=== PATIENT | male | born 1960 | race Caucasian/White ===

== ENCOUNTER 2017-04-12 13:19 | Observation (INO) | payer BC ==
[~2017-04-12] VITALS: Ht 190.5 cm; Wt 164.5 kg
[~2017-04-12 13:19] MED LIST: GLYBURIDE-METF1 EAC1 PO; LEVEMIR FL100 UNITS/ SC; LEVOCETIRIZINE D5 MG PO; LIPITOR40 MG PO; LISINOPRIL20 MG PO; NEXIUM40 MG PO; NOVOLOG PE100 UNITS/ SC; OXYCODONE HCL10 MG PO; SERTRALINE HCL50 MG PO
[2017-04-12 15:10] LABS: HEMATOCRIT 42.9 % (38.0-50.0); MCH 26.1 PG (29.0-34.0); MCHC 32.4 G/DL (30.0-36.0); MCV 80.6 FL (86-99); RBC DIS.WIDTH-SD 37.4 % (39-53); RED BLOOD COUNT 5.32 M/uL (4.00-5.50); WHITE BLOOD COUNT 8.6 K/uL (4.1-10.2)
[2017-04-12 15:31] LABS: CHLORIDE 100 mEq/L (99-109); POTASSIUM 4.8 mEq/L (3.7-5.4); SODIUM 136 mEq/L (136-147)
[2017-04-12 15:33] LABS: GLUCOSE 253 mg/dL (70-99)
[2017-04-12 15:34] LABS: ANION GAP 11 MEQ/L (2-14)
[2017-04-12 15:35] LABS: TOTAL BILIRUBIN 0.4 mg/dL (0.0-1.0)
[2017-04-12 15:36] LABS: ALKALINE PHOSPHATASE 72 IU/L (3-129)
[2017-04-12 15:37] LABS: GFR ESTIMATE (CALCULATED) > 59 mL/min/
[2017-04-12 15:38] LABS: UREA NITROGEN (BUN) 13 mg/dL (9-23)
[2017-04-12 15:42] LABS: TROP-I INTERPRETATION NEGATIVE; TROPONIN-I < 0.01 ng/mL (0.0-0.30)
[2017-04-12] MEDS ORDERED: HUMALOG100 UNIT/2 SC (15:58)
[2017-04-12] MEDS ORDERED: LEVEMIR FL100 UNIT/1 SC (15:58)
[2017-04-12] MEDS ORDERED: IBUPROFEN800 MG PO (16:00)
[2017-04-12] MEDS ORDERED: JANUVIA100 MG PO (16:00)
[2017-04-12] MEDS ORDERED: PROBIOTIC1 EAC1 PO (16:01)
[2017-04-12 16:07] LABS: MEAN PLAT.VOLUME 13.1 uM^3 (9.0-12.4); PLAT.SUFFICIENCY ADEQUATE; PLATELET COUNT 198 K/uL (156-360)
[2017-04-12 21:02] VITALS: BP 118/55
[2017-04-12 21:18] LABS: HDL CHOLESTEROL 38 MG/DL (Desirable>=40); LDL CHOLESTEROL 86 mg/dL (Desirable<100); NON-HDL CHOLESTEROL 119 mg/dL (Desirable<160); TOTAL CHOLESTEROL 157 mg/dL (Desirable<200); TRIGLYCERIDES 167 MG/DL (Normal: <150)
[2017-04-12 21:21] LABS: D-DIMER ELISA 0.35 mg/L FEU (< 0.57)
[2017-04-12] MEDS ORDERED: TRIAMCINOLONE A15 GM TP (22:29)
[2017-04-12 22:36] LABS: TROP-I INTERPRETATION NEGATIVE; TROPONIN-I < 0.01 ng/mL (0.0-0.30)
[2017-04-12 23:46] VITALS: BP 132/63
[2017-04-13 04:06] VITALS: BP 131/68
[2017-04-13 04:53] LABS: TROP-I INTERPRETATION NEGATIVE; TROPONIN-I < 0.01 ng/mL (0.0-0.30)
[2017-04-13 09:12] LABS: POINT-OF-CARE METER ID UU13113831
[2017-04-13 09:20] VITALS: BP 133/76
[2017-04-13] MEDS ORDERED: ASPIR-LOW81 MG PO (12:20)
[2017-04-13 12:41] VITALS: BP 141/70
== END 2017-04-13 13:15 | disposition home or self-care (01) ==
LOC: EME 13:19 → EDOF 19:15 → 5WEST 19:15 → EDOF 19:15 → 5WEST 20:54
PROVIDERS: Hospitalist; Internal Medicine
DX: R07.9 Chest pain, unspecified (principal); R55 Syncope and collapse; R53.1 Weakness; I10 Essential (primary) hypertension; E78.5 Hyperlipidemia, unspecified; G47.33 Obstructive sleep apnea (adult) (pediatric); E66.01 Morbid (severe) obesity due to excess calories; R25.2 Cramp and spasm; Z96.641 Presence of right artificial hip joint; E11.9 Type 2 diabetes mellitus without complications
CPT/HCPCS: 71020; 80053; 80061; 82948; 84484; 85027; 85379; 93005; 93971; 94660; 99281; 99285; G0378; J1815; J7030

== ENCOUNTER 2017-12-20 19:32 | Observation (INO) | payer BC ==
[~2017-12-20] VITALS: Ht 190.5 cm; Wt 155.1 kg
[~2017-12-20 19:32] MED LIST changes: +ASPIR-LOW81 MG PO; +HUMALOG100 UNIT/2 SC; +IBUPROFEN800 MG PO; +JANUVIA100 MG PO; +LEVEMIR FL100 UNIT/1 SC; +PROBIOTIC1 EAC1 PO; +TRIAMCINOLONE A15 GM TP
[2017-12-20 20:36] LABS: HEMATOCRIT 43.3 % (38.0-50.0); HEMOGLOBIN 14.3 G/DL (12.5-16.6); MCH 26.3 PG (29.0-34.0); MCV 79.7 FL (86-99); PLATELET COUNT 245 K/uL (156-360); RBC DIS.WIDTH-CV 13.2 % (11.8-14.6); RBC DIS.WIDTH-SD 37.2 % (39-53); RED BLOOD COUNT 5.43 M/uL (4.00-5.50); WHITE BLOOD COUNT 14.6 K/uL (4.1-10.2)
[2017-12-20 21:02] LABS: ALBUMIN 4.3 G/DL (3.2-4.8); CHLORIDE 95 MEQ/L (99-109); POTASSIUM 4.1 MEQ/L (3.7-5.4); SODIUM 132 MEQ/L (136-147); TOTAL BILIRUBIN 0.4 MG/DL (0.0-1.0)
[2017-12-20 21:08] LABS: ALKALINE PHOSPHATASE 103 IU/L (3-129); ALT (GPT) 29 IU/L (3-49); AST (GOT) 26 IU/L (2-34); CREATININE 0.9 MG/DL (0.6-1.3); GFR ESTIMATE (CALCULATED) > 59 mL/min/ (58.99-99999); GLUCOSE 371 mg/dL (70-99); LIPASE 30 U/L (1.0-51.0); TOTAL PROTEIN 7.8 G/DL (6.4-8.3); UREA NITROGEN (BUN) 13 mg/dL (9-23)
[2017-12-20 21:19] LABS: APPEARANCE CLEAR ((CLEAR)); BILIRUBIN NEGATIVE; BLOOD NEGATIVE; COLOR STRAW ((YELLOW)); GLUCOSE (STRIP) >=500; KETONES NEGATIVE; LEUKOCYTES NEGATIVE; NITRITE NEGATIVE; PROTEIN (STRIP) NEGATIVE; SPECIFIC GRAVITY 1.015 (1.000-1.030); UCUL ADDED? NO; UROBILINOGEN 0.2 MG/DL (0.2-1.0)
[2017-12-21] MEDS ORDERED: NOVOLOG PE100 UNITS/ SC (01:35)
[2017-12-21] MEDS ORDERED: ESOMEPRAZOLE MA40 MG PO (01:36)
[2017-12-21] MEDS ORDERED: ATORVASTATIN CA80 MG PO (01:36)
[2017-12-21] MEDS ORDERED: IBUPROFEN800 MG PO (01:38)
[2017-12-21] MEDS ORDERED: KENALOG,ARISTOC80 GM TP (01:38)
[2017-12-21 02:44] VITALS: BP 168/88
[2017-12-21 09:30] VITALS: BP 148/73
[2017-12-21 11:31] LABS: BASOPHIL (%) 0.4 % (0-1); EOSINOPHIL (%) 2.5 % (0-5); EOSINOPHIL COUNT 0.3 K/uL (0-0.3); HEMATOCRIT 40.2 % (38.0-50.0); HEMOGLOBIN 12.8 G/DL (12.5-16.6); IMMATURE GRANULOCYTE (%) 0.4 % (0.0-0.7); LYMPHOCYTE (%) 17.9 % (15-42); LYMPHOCYTE COUNT 1.9 K/uL (1.0-2.8); MCH 25.6 PG (29.0-34.0); MCHC 31.8 G/DL (30.0-36.0); MCV 80.4 FL (86-99); MONOCYTE (%) 8.7 % (3-12); NEUTROPHIL (%) 70.1 % (45-76); NEUTROPHIL COUNT 7.6 K/uL (1.8-6.4); PLATELET COUNT 219 K/uL (156-360); RBC DIS.WIDTH-CV 13.2 % (11.8-14.6); RBC DIS.WIDTH-SD 38.4 % (39-53); WHITE BLOOD COUNT 10.9 K/uL (4.1-10.2)
[2017-12-21 11:47] LABS: CHLORIDE 96 MEQ/L (99-109); CREATININE 0.9 MG/DL (0.6-1.3); GFR ESTIMATE (CALCULATED) > 59 mL/min/ (58.99-99999); GLUCOSE 376 mg/dL (70-99); POTASSIUM 4.8 MEQ/L (3.7-5.4); SODIUM 133 MEQ/L (136-147); UREA NITROGEN (BUN) 15 mg/dL (9-23)
[2017-12-21 16:41] VITALS: BP 146/73
[2017-12-21 20:00] VITALS: BP 132/74
[2017-12-21 23:44] VITALS: BP 146/78
[2017-12-22 06:56] LABS: INTER. NORMALIZED RATIO 1.2
[2017-12-22 06:59] LABS: PTT 27.9 SEC (25-37)
[2017-12-22 07:49] VITALS: BP 142/74
[2017-12-22 11:49] VITALS: BP 151/63
[2017-12-22 15:29] VITALS: BP 155/76
[2017-12-22 19:30] VITALS: BP 161/81
[2017-12-22 23:38] VITALS: BP 146/68
[2017-12-23 08:34] VITALS: BP 145/74
[2017-12-23] MEDS ORDERED: OXYCODONE-APAP1 EACH PO (10:18)
[2017-12-23] MEDS ORDERED: TYLENOL REGULA325 MG PO (10:20)
[2017-12-23] MEDS ORDERED: SENNA-DOCUSATE1 EAC1 PO (10:20)
[2017-12-23 11:40] VITALS: BP 158/77
== END 2017-12-23 13:32 | disposition home or self-care (01) ==
LOC: EME 19:32 → EDOF 12-21 00:59 → 5WEST 12-21 00:59 → CANRESERV 12-21 01:00 → ENRESERV 12-21 01:00 → EDOF 12-21 01:23 → ENRESERV 12-21 01:24 → 5WEST 12-21 02:36
PROVIDERS: Hospitalist; Internal Medicine Hematology & Oncology; Student in an Organized Health Care Education/Training Program
PROC: 0FB13ZX Excision of Right Lobe Liver, Percutaneous Approach, Diagnostic (ICD-10-PCS; principal; 2017-12-22)
DX: C22.1 Intrahepatic bile duct carcinoma (principal); R59.0 Localized enlarged lymph nodes; R10.11 Right upper quadrant pain; R16.0 Hepatomegaly, not elsewhere classified; E66.01 Morbid (severe) obesity due to excess calories; Z68.41 Body mass index [BMI] 40.0-44.9, adult; I10 Essential (primary) hypertension; E78.00 Pure hypercholesterolemia, unspecified; E11.65 Type 2 diabetes mellitus with hyperglycemia; E11.40 Type 2 diabetes mellitus with diabetic neuropathy, unspecified; F41.9 Anxiety disorder, unspecified; K21.9 Gastro-esophageal reflux disease without esophagitis; Z87.442 Personal history of urinary calculi; Z86.010 Personal history of colon polyps; N40.0 Benign prostatic hyperplasia without lower urinary tract symptoms; L40.9 Psoriasis, unspecified; Z80.0 Family history of malignant neoplasm of digestive organs; Z79.4 Long term (current) use of insulin; E78.5 Hyperlipidemia, unspecified; Z87.19 Personal history of other diseases of the digestive system; G47.33 Obstructive sleep apnea (adult) (pediatric); H91.90 Unspecified hearing loss, unspecified ear; D72.829 Elevated white blood cell count, unspecified; Z90.49 Acquired absence of other specified parts of digestive tract; Z96.641 Presence of right artificial hip joint; Z80.41 Family history of malignant neoplasm of ovary; Z81.1 Family history of alcohol abuse and dependence
CPT/HCPCS: 72197; 74176; 74183; 77012; 80048; 80053; 81003; 82948; 83605; 83690; 85025; 85027; 85610; 85730; 88305; 88341 TC; 88342 TC; 93005; 94660; 99281; 99285; G0378; J1170; J1650; J1815; J1885; J2060; J2405; J3010; J7030

== ENCOUNTER 2018-03-01 01:51 | Emergency (ER) | payer BC ==
[~2018-03-01] VITALS: Ht 190.5 cm; Wt 153.0 kg
[~2018-03-01 01:51] MED LIST changes: +ATORVASTATIN CA80 MG PO; +ESOMEPRAZOLE MA40 MG PO; +KENALOG,ARISTOC80 GM TP; +OXYCODONE-APAP1 EACH PO; +SENNA-DOCUSATE1 EAC1 PO; +TYLENOL REGULA325 MG PO
[2018-03-01 02:53] LABS: HEMATOCRIT 35.4 % (38.0-50.0); HEMOGLOBIN 11.9 G/DL (12.5-16.6); MCH 26.5 PG (29.0-34.0); MCHC 33.6 G/DL (30.0-36.0); MCV 78.8 FL (86-99); PLATELET COUNT 73 K/uL (156-360); RBC DIS.WIDTH-CV 12.7 % (11.8-14.6); RBC DIS.WIDTH-SD 36.3 % (39-53); RED BLOOD COUNT 4.49 M/uL (4.00-5.50); WHITE BLOOD COUNT 6.5 K/uL (4.1-10.2)
[2018-03-01 03:02] LABS: CHLORIDE 97 mEq/L (99-109); POTASSIUM 3.7 mEq/L (3.7-5.4); SODIUM 132 mEq/L (136-147)
[2018-03-01 03:03] LABS: GLUCOSE 222 mg/dL (70-99)
[2018-03-01 03:07] LABS: CREATININE 0.9 mg/dL (0.6-1.3); GFR ESTIMATE (CALCULATED) > 59 mL/min/ (58.99-99999)
[2018-03-01 03:08] LABS: UREA NITROGEN (BUN) 16 mg/dL (9-23)
[2018-03-01] MEDS ORDERED: MOTRIN800 MG PO (03:22)
[2018-03-01 03:41] VITALS: BP 117/55
== END 2018-03-01 03:43 | disposition home or self-care (01) ==
LOC: EME 01:51
DX: R50.9 Fever, unspecified (principal); C24.0 Malignant neoplasm of extrahepatic bile duct; I10 Essential (primary) hypertension; E78.5 Hyperlipidemia, unspecified; E11.9 Type 2 diabetes mellitus without complications; Z79.4 Long term (current) use of insulin; Z92.21 Personal history of antineoplastic chemotherapy
CPT/HCPCS: 71046; 80048; 81003; 85027; 99281; 99284

== ENCOUNTER 2018-05-15 00:21 | Emergency (ER) | payer BC ==
[~2018-05-15] VITALS: Ht 190.5 cm; Wt 154.4 kg
[~2018-05-15 00:21] MED LIST changes: +MOTRIN800 MG PO
[2018-05-15 01:10] LABS: HEMATOCRIT 26.8 % (38.0-50.0); HEMOGLOBIN 9.2 G/DL (12.5-16.6); MCH 27.9 PG (29.0-34.0); MCHC 34.3 G/DL (30.0-36.0); MCV 81.2 FL (86-99); PLATELET COUNT 155 K/uL (156-360); RBC DIS.WIDTH-CV 16.4 % (11.8-14.6); RBC DIS.WIDTH-SD 48.7 % (39-53); WHITE BLOOD COUNT 10.1 K/uL (4.1-10.2)
[2018-05-15 01:21] LABS: ALBUMIN 3.9 g/dL (3.2-4.8)
[2018-05-15 01:22] LABS: CHLORIDE 99 mEq/L (99-109); POTASSIUM 5.1 mEq/L (3.7-5.4); SODIUM 131 mEq/L (136-147)
[2018-05-15 01:24] LABS: TOTAL PROTEIN 6.2 g/dL (6.4-8.3)
[2018-05-15 01:25] LABS: GLUCOSE 401 mg/dL (70-99)
[2018-05-15 01:26] LABS: TOTAL BILIRUBIN 0.5 mg/dL (0.0-1.0)
[2018-05-15 01:27] LABS: ALKALINE PHOSPHATASE 66 IU/L (3-129)
[2018-05-15 01:28] LABS: GFR ESTIMATE (CALCULATED) > 59 mL/min/ (58.99-99999)
[2018-05-15 01:29] LABS: AST (GOT) 18 IU/L (2-34); UREA NITROGEN (BUN) 25 mg/dL (9-23)
[2018-05-15 01:30] LABS: ALT (GPT) 43 IU/L (3-49)
[2018-05-15 01:31] LABS: LIPASE 39 U/L (1.0-51.0)
[2018-05-15 01:50] LABS: MAGNESIUM 1.3 mg/dL (1.3-2.7)
[2018-05-15 02:05] LABS: CARBON DIOXIDE (BICARBONATE) 25.1 MEQ/L (20-31)
[2018-05-15] MEDS ORDERED: ORAL ANALGESIC12 ML MM (02:38)
[2018-05-15 02:46] LABS: BASOPHIL (%) 0.1 % (0-1); EOSINOPHIL (%) 0 % (0-5); IMMATURE GRANULOCYTE (%) 0.9 % (0.0-0.7); LYMPHOCYTE (%) 6.5 % (15-42); LYMPHOCYTE COUNT 0.7 K/uL (1.0-2.8); MONOCYTE (%) 2.1 % (3-12); MONOCYTE COUNT 0.2 K/uL (0-0.8); NEUTROPHIL (%) 90.4 % (45-76)
[2018-05-15 03:33] VITALS: BP 120/63
== END 2018-05-15 03:34 | disposition home or self-care (01) ==
LOC: EME 00:21
PROVIDERS: Emergency Medicine
DX: J02.9 Acute pharyngitis, unspecified (principal); E11.65 Type 2 diabetes mellitus with hyperglycemia; I10 Essential (primary) hypertension; E78.5 Hyperlipidemia, unspecified; Z79.4 Long term (current) use of insulin; Z85.09 Personal history of malignant neoplasm of other digestive organs; Z92.21 Personal history of antineoplastic chemotherapy
CPT/HCPCS: 70360; 80053; 82010; 82803; 82948; 83690; 83735; 85025; 85027; 87651 90; J7030

== ENCOUNTER 2018-06-05 12:08 | Emergency (ER) | payer BC ==
[~2018-06-05] VITALS: Ht 190.5 cm; Wt 151.8 kg
[~2018-06-05 12:08] MED LIST changes: +ORAL ANALGESIC12 ML MM
[2018-06-05 14:06] LABS: HEMATOCRIT 31.4 % (38.0-50.0); HEMOGLOBIN 10.5 G/DL (12.5-16.6); MCH 28.4 PG (29.0-34.0); MCHC 33.4 G/DL (30.0-36.0); MCV 84.9 FL (86-99); PLATELET COUNT 187 K/uL (156-360); RBC DIS.WIDTH-CV 16.5 % (11.8-14.6); WHITE BLOOD COUNT 8.3 K/uL (4.1-10.2)
[2018-06-05 14:49] VITALS: BP 150/65
== END 2018-06-05 14:49 | disposition home or self-care (01) ==
LOC: EME 12:08
PROVIDERS: Physician Assistant
DX: L30.9 Dermatitis, unspecified (principal); C22.9 Malignant neoplasm of liver, not specified as primary or secondary; Z92.21 Personal history of antineoplastic chemotherapy
CPT/HCPCS: 85027; 99281; 99283